=== PATIENT | male | born 1990 | race Caucasian/White ===

== ENCOUNTER 2024-12-01 10:36 | Emergency (ER) | payer OTHER, SELFPAY ==
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
--- OUTSIDE RECORDS SUMMARY | 2024-12-01 10:41 | XMS_ITS | Clinical Summary ---
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 Gender Identity Not on file Sexual Orientation Not on file Plan of Treatment Health Maintenance Due Date Last Done Comments Hepatitis C Virus (HCV) Screening 1989 TdaP Immunization 1989 Hepatitis B Immunization (1 of 3 - 19+ 3-dose series) 2008 Influenza Immunization (#1) 2024 SARS-COV-2 Immunization ( - 2023- season) 2024 Respiratory Syncytial Virus (RSV) Immunization (Adult) (1 - 1-dose 75+ series) 2064 DTaP/Tdap/Td Immunization Discontinued 09/17/2017 Meningococcal Immunization (ACWY) Aged Out No longer eligible based on patient's age to complete this topic Pneumococcal Immunization Combined Aged Out No longer eligible b ased on patient's age to complete this topic Rotavirus Immunization Aged Out No lo nger eligible based on patient's age to complete this topic
[2024-12-01 10:50] VITALS: BP 143/92; PULSE 78; RESP 16; TEMP 36.8; O2SAT 96
[2024-12-01 11:20] LABS: EDCOVIDSCREEN Negative (Negative); EDINFLUASCREEN Negative (Negative); EDINFLUBSCREEN Negative (Negative); EDSTREPNEGPOS1 Negative (Negative)
--- NOTE | 2024-12-01 11:23 | ED.URI ---
HPI - URI/Sore Throat General Chief Complaint: Upper Respiratory Infection Stated Complaint: sore throat History of Present Illness HPI Narrative: 34-year-old male presents today with complaints of a sore throat that started on with a cough. Yesterday he started with diarrhea states he had 3 bowel movements yesterday and 3 today that her diarrhea. Denies any known fevers but was told that he felt hot on . Patient's son recently is treated for strep throat. Related Data Home Medications ?Medication ?Instructions ?Recorded ?Confirmed ?Last Taken ?Type terbinafine HCl 250 mg tablet mg 12/01/24 Unknown History Allergies Allergy/AdvReac Type Severity Reaction Status Date / Time Penicillins AdvReac Mild Other Verified 12/01/24 10:49 Review of Systems Review of Systems: All systems reviewed & are unremarkable except as noted in HPI and below Eyes: Eyes: Reports as per HPI ENT: Reports as per HPI Cardiovascular: Cardiovascular: Reports as per HPI Respiratory: Respiratory: Reports as per HPI Genitourinary: Genitourinary: Reports as per HPI Musculoskeletal: Musculoskeletal: Reports as per HPI Integumentary/Breasts: Skin/Breast: Reports as per HPI Neurologic: Reports as per HPI Psychiatric: Psychiatric: Reports as per HPI Endocrine: Endocrine: Reports as per HPI Hematologic/Lymphatic: Hematologic/Lymphatic: Reports as per HPI Allergic/Immunologic: Allergic/Immunologic: Reports as per HPI Exam Const: General: cooperative, healthy appearing, comfortable, no acute distress and well developed Orientation/consciousness: patient oriented x3 HENMT: Head: normal to inspection Throat: abnormal tonsil bilateral erythema and hypertrophy 1+; no exudates Eyes: General: appearance normal, both eyes and all related structures Neck: Neck: no lymphadenopathy Resp: Effort & Inspection: normal respiratory effort and able to speak in complete sentences Auscultation: clear to auscultation bilaterally Cardio: Rate: regular rate Rhythm: regular rhythm Heart sounds: S1 normal heart sound present and S2 normal heart sound present Skin: General skin exam: normal color Neuro: General: patient oriented x3 Cognition (Neuro): normal cognition Speech: normal speech Psych: Mental Status: mental status grossly normal Course Course Level of Care: Express Care Visit Vital Signs Vital signs: Vital Signs Temperature 98.3 F 12/01/24 10:50 Pulse Rate 78 12/01/24 10:50 Respiratory Rate 16 12/01/24 10:50 Blood Pressure 143/92 H 12/01/24 10:50 Pulse Oximetry 96 12/01/24 10:50 Oxygen Delivery Room Air 12/01/24 10:50 Temperature 98.3 F 12/01/24 10:50 Pulse Rate 78 12/01/24 10:50 Respiratory Rate 16 12/01/24 10:50 Blood Pressure 143/92 H 12/01/24 10:50 Pulse Oximetry 96 12/01/24 10:50 Oxygen Delivery Room Air 12/01/24 10:50 MDM - URI/Sore Throat MDM Narrative Medical decision making narrative: 34-year-old male HPI as noted. Differentials include But not limited to upper respiratory tract infection, sinusitis, bronchitis, influenza, COVID, pharyngitis, streptococcal pharyngitis. COVID influenza testing negative. Strep rapid testing negative. Patient with +1 tonsils and erythema plus known recent contact with strep positive patient. I believe patient could possibly have strep and a viral infection both. Even though his strep testing was negative. Patient has a family allergy to penicillins and never had penicillin himself will send him home with a Zithromax in and instructed to treat symptoms as needed symptomatically. Medical Records Attestation: I reviewed the patient's medical records. Lab Data Attestation: I reviewed the patient's lab results. Labs: Lab Results 12/01/24 Range/Units 11:18 POC Influenza A Ag Negative (Negative) POC Influenza B Ag Negative (Negative) POC SARS CoV-2 Ag Negative (Negative) POC Grp A Strep Screen Negative (Negative) Discharge Plan Discharge Clinical Impression: Upper respiratory infection Qualifiers: URI type: unspecified URI Qualified Code(s): J06.9 - Acute upper respiratory infection, unspecified Pharyngitis Qualifiers: Pharyngitis/tonsillitis etiology: unspecified etiology Qualified Code(s): J02.9 - Acute pharyngitis, unspecified Patient Disposition: Home, Self-Care Condition: Stable Instructions: Antibiotic Form, Pharyngitis (ED), Viral Syndrome (ED) Additional Instructions: Your COVID flu and strep were negative today. knowing that your son was recently treated for strep throat and fever sore throat with redness to the throat I will tentatively give azithromycin as her chart says possible allergy to penicillins and you have never had them. A throat culture was sent daughter will come back in about 3 days. Return with any concerning symptoms. Treat cough as needed with Mucinex DM. if having postnasal drip please use Flonase 2 sprays each nostril once daily. Tylenol ibuprofen for pain or fever. Return with any worsening concerns. Patient Language: Russian Prescriptions: New azithromycin 250 mg tablet See Rx Instructions .ROUTE .COMPLEX Qty: 6 0RF Rx Instructions: For 250 mg dose pack: take 500 mg today (day 1), then 250 mg for 4 days (days 2-5) No Action terbinafine HCl 250 mg tablet Follow-up/Referrals: Roseanne Banks PA-C [Primary Care Provider] - Time of Disposition: 11:34
== END 2024-12-01 11:39 | disposition home or self-care (01) ==
PROVIDERS: Emergency Provider Nurse Practitioner Family; PCP Physician Assistant Medical
DX: J06.9 Acute upper respiratory infection, unspecified (principal); J02.9 Acute pharyngitis, unspecified; Z20.822 Contact with and (suspected) exposure to COVID-19
CPT/HCPCS: 87081; 87426; 87804; 87880; 99213; G0463